=== PATIENT | female | born 1950 | race Caucasian/White ===

== ENCOUNTER → 2019-07-05 | Outpatient (CLI) | payer MEDICARE, OTHER | END | disposition home or self-care (01) | LOC: CFH 09:55 | PROVIDERS: ATTEND Internal Medicine | DX: Z13.820 Encounter for screening for osteoporosis (principal); M85.88 Other specified disorders of bone density and structure, other site; N95.9 Unspecified menopausal and perimenopausal disorder; Z78.0 Asymptomatic menopausal state | CPT/HCPCS: 77080 ==

== ENCOUNTER 2021-01-28 19:55 | Emergency (ER) | payer MEDICARE, OTHER ==
[~2021-01-28] VITALS: Ht 149.9 cm; Wt 53.6 kg
--- NOTE | 2021-01-28 20:09 | NUR ---
VAISHALI RN: COVID SWAB PERFORMED BY SHON BARNES AND SENT TO LAB. EKG DONE WELL IN TRIAGE.
--- NOTE | 2021-01-28 21:30 | NUR ---
pt to room from lobby
[2021-01-28 21:46] LABS: BASOPHILS % (AUTO) 0 % (0-1); EOSINOPHILS % (AUTO) 0 % (1-7); LYMPHOCYTES % (AUTO) 8 % (22-44); MEAN CORPUSCULAR HEMOGLOBIN 30.2 pg (27.0-34.8); MEAN CORPUSCULAR HGB CONC 33.8 g/dL (32.4-35.8); MEAN PLATELET VOLUME 7.4 fL (7.4-10.4); MONOCYTES % (AUTO) 4 % (2-9); NEUTROPHILS % (AUTO) 88 % (42-75); PLATELET COUNT 220 x10^3/uL (130-400); RED BLOOD COUNT 4.58 x10^6/uL (3.82-5.3)
[2021-01-28 21:48] LABS: ALBUMIN 3.1 g/dL (3.4-5.0); ANION GAP 7 mmol/L (5-15); CALCIUM 8.7 mg/dL (8.5-10.1); CHLORIDE 102 mmol/L (98-107)
--- NOTE | 2021-01-28 21:48 | NUR ---
VSS. PENDING LABS. CALL L[facility] IN REACH. WILL CTM.
[2021-01-28 21:54] LABS: ALANINE AMINOTRANSFERASE 128 U/L (12-78); ALKALINE PHOSPHATASE 94 U/L (45-117); BILIRUBIN,TOTAL 0.6 mg/dL (0.2-1.0); TROPONIN I < 0.015 ng/mL (0.000-0.045)
[2021-01-28 22:39] LABS: RAPID INFLUENZA A Negative (Negative); RAPID INFLUENZA B Negative (Negative)
--- NOTE | 2021-01-28 23:28 | NUR ---
CONSENT SIGNED & PLACED ON CHART. PHARM AWARE, WILL CALL WHEN MED READY.
[2021-01-28] MEDS ORDERED: CASIRIVIMAB 600 MG, IMDEVIMAB (REGN10987) 600 MG in SODIUM CHLORIDE 0.9% 250 ML IVPB ONE (23:45)
[2021-01-28] MEDS ORDERED: FILTER 0.22 MICRON IV ONE (23:45)
--- NOTE | 2021-01-29 00:25 | NUR ---
REGEN INFUSING WELL. CALL LIGHT GABI.WILL JESSICA.
[2021-01-29 02:23] VITALS: BP 127/71
--- NOTE | 2021-01-29 02:23 | NUR ---
Patient given discharge instructions and they have confirmed that they understand the instructions. Patient ambulatory with steady gait.
== END 2021-01-29 02:34 | disposition home or self-care (01) ==
LOC: ED 20:00
DX: U07.1 COVID-19 (principal); J18.9 Pneumonia, unspecified organism; R94.31 Abnormal electrocardiogram [ECG] [EKG]
CPT/HCPCS: 36415; 71045; 80053; 84484; 85025; 87400; 87635; 93005; 99285; M0243; U0003; U0005